=== PATIENT | female | born 1945 | race Caucasian/White ===

== ENCOUNTER 2017-04-15 11:49 | Outpatient (CLI) | payer MEDICARE, OTHER ==
[~2017-04-15] VITALS: Ht 152.4 cm; Wt 53.6 kg
[~2017-04-15 11:49] MED LIST: BAYER CHEWABLE81 MG PO; BYSTOLIC10 MG PO; CARAFATE1 G/10 ML PO; CATAPRES0.1 MG PO; CIPRO500 MG PO; HYDROCODONE-APA1 TAB PO; ISOSORBIDE DINI20 MG PO; K-DUR20 MEQ PO; LIPITOR80 MG PO; LOTENSIN5 MG PO; MILK OF MAGNESI30 ML PO; MIRALAX17 GM PO; NORVASC2.5 MG PO; PLAVIX75 MG PO; PRILOSEC20 MG PO; PROCARDIA10 MG PO; SYNTHROID50 MCG PO; XANAX0.5 MG PO
[2017-04-15 14:57] VITALS: BP 135/46; Ht 152.4 cm; Wt 53.6 kg
--- NOTE | 2017-04-15 15:04 | NUR ---
1440 5 STICKS FOR IV. ABLE TO GET BY KATHIE BUSTILLO R.N. 22 GAUGE 1 STICK RT A/C GOOD BLOOD RETURN. NO REDNESS OR SWELLING.
--- NOTE | 2017-04-15 15:04 | NUR ---
1430 BLOOD CONSENT OBTAINED. EXPLAINED S/S OF BLOOD REACTIONS TO REPORT. LUNCH TRAYN SERVED.
--- NOTE | 2017-04-15 15:06 | NUR ---
1445 BLOOD CHECKED BY 2 R.N. AND INFUSING VIA RT A/S WITHOUT REDNESS OR SWELLING V/DS STABLE.
--- NOTE | 2017-04-15 15:10 | NUR ---
1500 TOLERATING BLOOD WITHOUT S/S OF BLOOD REACTIONS. NO SOB.
--- NOTE | 2017-04-15 15:31 | NUR ---
1532niv without redness or swelling no s/s of blood reactions noted. resp even and nonlabored.
--- NOTE | 2017-04-15 15:31 | NUR ---
1532 report to nicole manriquez r.n.
== END 2017-04-15 18:05 | disposition home or self-care (01) ==
LOC: D.OPS 11:49
DX: D53.9 Nutritional anemia, unspecified (principal)

== ENCOUNTER 2017-09-01 13:02 | Emergency (ER) | payer MEDICARE, OTHER ==
[2017-04-15 14:57] VITALS: BMI 23.0
[2017-09-01 13:58] LABS: BASOPHILS 1.1 % (0-2); HEMATOCRIT 27.7 % (36.0-48.0); HEMOGLOBIN 8.5 g/dL (12-16); IMMATURE GRANULOCYTES 0.1 % (0-5); LYMPHOCYTES 18.5 % (15-50); MCH 26.2 pg (26.0-34.0); MCHC 30.7 g/dL (31.0-37.0); MCV 85.5 fL (80.0-100.0); MEAN PLATELET VOLUME 9.1 fL (7.4-10.4); MONOCYTES 7.1 % (2-11); NEUTROPHILS 70.2 % (40-80); PLATELET COUNT 366 10x3/uL (130-400); RBC 3.24 10x6/uL (4.00-5.40); RDW 16.6 % (11.5-14.5); WBC 8.3 10x3/uL (4.8-10.8)
[2017-09-01 14:15] LABS: ALBUMIN 2.6 g/dL (3.4-5.0); ANION GAP 16.8 mmol/L (8-16); BILIRUBIN - TOTAL 0.18 mg/dL (0.2-1.3); CALCIUM 8.3 mg/dL (8.5-10.1); CARBON DIOXIDE 23.2 mmol/L (21.0-32.0); CREATININE - SERUM 1.9 mg/dL (0.6-1.3); PROTEIN - SERUM 6.1 g/dL (6.4-8.2)
== END 2017-09-01 19:57 | disposition home or self-care (01) ==
LOC: D.ER 13:02
PROVIDERS: Emergency Medicine
DX: M79.661 Pain in right lower leg (principal); J44.1 Chronic obstructive pulmonary disease with (acute) exacerbation; I12.9 Hypertensive chronic kidney disease with stage 1 through stage 4 chronic kidney disease, or unspecified chronic kidney disease; N18.9 Chronic kidney disease, unspecified; D64.9 Anemia, unspecified; F17.200 Nicotine dependence, unspecified, uncomplicated